=== PATIENT | male | born 1980 | race Caucasian/White ===

== ENCOUNTER 2021-01-09 21:40 | Emergency (ER) | payer OTHER ==
[2021-01-09 23:11] LABS: BASOPHIL 0.2 % (0-2); EOSINOPHIL 0.1 % (0-5); HCT 43.4 % (42.0-52.0); LYMPHOCYTE 10.4 % (15-48); MCH 30.9 pg (25.0-31.0); MCHC 34.6 g/dL (32.0-36.0); MCV 89.3 fL (78.0-100.0); MONOCYTE 7.7 % (0-12); MPV 9.5 fL (6.0-9.5); NEUTROPHIL 80.5 % (41-80); NRBC 0; PLT 203 K/uL (150-400); RBC 4.86 M/uL (4.70-6.00); RDW 12.3 % (11.5-14.0); WBC 9.9 K/uL (4.0-10.5)
[2021-01-09 23:31] LABS: ALBUMIN 3.9 g/dL (3.4-5.0); BILIRUBIN - TOTAL 0.3 mg/dL (0.2-1.0); CREATININE 1.23 mg/dL (0.67-1.17); GLOBULIN (CALCULATION) 3.6 g/dL; POTASSIUM 3.9 mmol/L (3.5-5.1); TOTAL PROTEIN 7.5 g/dL (6.4-8.2)
[2021-01-10] MEDS ORDERED: NORCO 5-325 TA1 EACH PO ×2 (00:22→09:42)
== END 2021-01-10 00:33 | disposition home or self-care (01) ==
LOC: FER 21:40
PROVIDERS: Emergency Medicine
DX: S22.038A Other fracture of third thoracic vertebra, initial encounter for closed fracture (principal); S22.048A Other fracture of fourth thoracic vertebra, initial encounter for closed fracture; S22.058A Other fracture of T5-T6 vertebra, initial encounter for closed fracture; S22.021A Stable burst fracture of second thoracic vertebra, initial encounter for closed fracture; F17.200 Nicotine dependence, unspecified, uncomplicated; V86.65XA Passenger of 3- or 4- wheeled all-terrain vehicle (ATV) injured in nontraffic accident, initial encounter
CPT/HCPCS: 36415; 70450; 71045; 72125; 72128; 80053; 85025; J2270; J2405; J7030